=== PATIENT | male | born 1960 | race Asian ===

== ENCOUNTER 2023-05-29 13:32 | Emergency (ER) | payer OTHER, SELFPAY ==
[2023-05-29 13:33] VITALS: BP 149/104; PULSE 67; RESP 18; TEMP 36.4; O2SAT 96; BMI 25.4
--- NOTE | 2023-05-29 14:11 | EX.ED.GENINJ ---
HPI History of Present Illness Chief Complaint: Laceration Narrative Narrative: History and physical mildly limited secondary to language barrier. Patient declined third-libertarian asl interpreter and would like his daughter to translate. He is visiting from [place] and was helping the patient clean and remodel closet. He bent over into the closet, and stood up quickly. His head of the shelf and he sustained a laceration to the top of his scalp. They are unsure of his last tetanus immunization. He denies other injury. No neck pain. No loss of consciousness. He does not take blood thinners. Past medical history includes hypertension. He is visiting from [place] and will be here for a month. They present because the laceration on the top of his head. [facility] Medical History HTN (hypertension) Allergy/AdvReac Type Severity Reaction Status Date / Time No Known Allergies Allergy Verified 05/29/23 13:35 Social History Smoking Status: Unknown if ever smoked ROS ROS ED ROS Narrative Constitutional: No fever, no chills. HEENT: No sore throat. No neck pain. No loss of vision. No rhinorrhea. Laceration to scalp on top of head. Cardiovascular: No chest pain. No palpitations. No pedal edema. Respiratory: No cough, no shortness of breath. Abdominal: No abdominal pain. No nausea. No vomiting. Genitourinary: No dysuria. No hematuria. Musculoskeletal: No myalgias. No arthralgias. Neurologic: Positive scalp pain/headaches. No dizziness. No lightheadedness. No loss of consciousness. Skin: No rash. No change in color. Psychiatric: No depression. No anxiety. EXAM Physical Exam Narrative Exam Narrative: Afebrile. Vital signs noted. HEENT: Normocephalic. 4 cm laceration on top of scalp, no galeal involvement apparent, no active bleeding. PERRL, EOMI. Neck soft and supple. No point tenderness or step off. Cardiovascular: Regular rate and rhythm. No murmurs, rubs, or gallops appreciated. Respiratory: No tachypnea. Lungs clear to auscultation bilaterally. Gastrointestinal: Abdomen soft, nontender, with normoactive bowel sounds. No rebound or guarding. Neurological: Awake. Alert. Oriented to person, place, and time. Nonfocal, nonlateralizing. Able to raise arms above head without difficulty. Skin: No rash. Normal color. No pallor. Musculoskeletal: No pedal edema. Full range of motion extremities. Const Vital Signs: 05/29/23 13:33 Temperature 97.5 F L Temperature Source Temporal Pulse Rate 67 Respiratory Rate 18 Blood Pressure 149/104 H Blood Pressure Mean 119 Pulse Ox 96 Oxygen Delivery Method Room Air MDM MDM MDM Narrative Medical decision making narrative: Why do think that the patient has a closed head injury, I do not feel that CT imaging is indicated. I do not feel that he has a skull fracture or intracranial hemorrhage based on his normal neurological examination. I also do not feel that CT of the neck is indicated as he has full range of motion without pain. His tetanus immunization will be updated. He was informed of the risk of infection and scarring and acknowledges an understanding. Lidocaine will be used to perform staple closure. Procedure note: Lidocaine 1% without epinephrine was used as local anesthetic. Area was cleansed using Shur-Clens and normal saline. The 4.5 cm laceration on the top of the skull/scalp shows no acute galea involvement. Skin edges approximated well with 10 surgical flaquito. Patient tolerated procedure well. At this point in time, I feel he can be discharged to follow-up with urgent care for staple removal, he was told that he can also return to the emergency department, but there would be an ED charge. He will take [id number] medications. He was seen ambulating well to the bathroom in the emergency department. I did discuss utility of CT with the daughter, and she is in agreements that is not currently indicated. Return instructions to the emergency department were reviewed. Disposition is discharged home in stable condition. History & Record Review Discussion w/independent historian: Patient and Family (Daughter) Discharge Plan Triage Chief Complaint: Laceration ED Provider: Rik Rodríguez Dx/Rx/DC Orders Clinical Impression: Closed head injury, Laceration of scalp Instructions: ED Head Injury (Adult), ED Laceration Scalp Stitches or [place] Primary Care Provider: Fiorella Aaron Referrals: Town [facility],Out of [Non-Staff] - Activity Restrictions/Additional Instructions: Take [id number] medications like Tylenol or ibuprofen as needed for pain. Have flaquito removed in 10 to 14 days. You may try urgent care to see if they can remove the flqauito, or return to the emergency department. Disposition Disposition: Home, Self Care
[2023-05-29] MEDS: Diphth,Pertuss(Acell),Tet Vac 0.5 ML Vial IM (14:24)
[2023-05-29] MEDS: Lidocaine 1% (20 ml mdv) 20 ML Vial INFILT (14:24)
[2023-05-29] MEDS: Acetaminophen 325 MG Tablet 650 MG PO (14:24)
[2023-05-29 15:21] VITALS: BP 151/87; PULSE 61; RESP 16; TEMP 36.4; O2SAT 97
== END 2023-05-29 15:22 | disposition home or self-care (01) ==
PROVIDERS: Emergency Provider Emergency Medicine; Visit Provider Emergency Medicine
DX: S01.01XA Laceration without foreign body of scalp, initial encounter (principal); Z23 Encounter for immunization; W22.09XA Striking against other stationary object, initial encounter; Y93.E9 Activity, other interior property and clothing maintenance; I10 Essential (primary) hypertension
CPT/HCPCS: 12002; 90715; 99283

== ENCOUNTER 2023-06-11 09:03 | Emergency (ER) | payer OTHER, SELFPAY ==
[2023-06-11 09:03] VITALS: BP 124/78; PULSE 78; RESP 16; TEMP 36.4; O2SAT 97; BMI 27.1
--- NOTE | 2023-06-11 10:06 | EDS_ITS ---
HPI History of Present Illness Chief Complaint: Wound Check Informant: patient and family Limited: language barrier (Daughter translated) Onset/Context/Timing Onset: Weeks (2) Location: Scalp Worsened by: Nothing Relieved by: Nothing Narrative Narrative: Patient presents for staple removal. Patient had flaquito placed in a scalp laceration 13 days ago. Patient is visiting from [place] and does not have a primary care physician in the area to follow-up with. Patient denies any fevers or chills. Patient denies any discharge or drainage. Patient denies any further bleeding. Patient denies any headaches. Patient denies any nausea or vomiting. Patient denies any pain. [facility] Medical History HTN (hypertension) Home Medications Unobtainable 06/11/23 [History Last Taken Unknown] Allergy/AdvReac Type Severity Reaction Status Date / Time No Known Allergies Allergy Verified 06/11/23 09:30 Social History Smoking Status: Unknown if ever smoked ROS ROS ED Constitutional Constitutional ED: Denies chills or fever(s) Eyes Eyes: Denies blurry vision or change in vision ENT ENT ED: Denies rhinorrhea or sore throat Cardiovascular Cardiovascular: Denies chest pain or palpitations Respiratory/Chest Respiratory/Chest: Denies cough or dyspnea Gastrointestinal Gastrointestinal: Denies nausea or vomiting Genitourinary Genitourinary ED: Denies dysuria or hematuria Musculoskeletal Musculoskeletal: Denies back pain or neck pain Integumentary Denies abscess or rash Neurologic Neurologic: Denies headache(s) or weakness Allergic/Immunologic Allergic/Immunologic ED: Denies mouth swelling or urticaria EXAM Physical Exam Const Vital Signs: 06/11/23 09:03 Temperature 97.6 F L Temperature Source Temporal Pulse Rate 78 Respiratory Rate 16 Blood Pressure 124/78 H Blood Pressure Mean 93 Pulse Ox 97 Oxygen Delivery Method Room Air Positive well nourished and well developed General Appearance ED: well developed and NAD HEENT Reports moist mucous membranes Neck supple and no JVD Neuro CN's II-XII intact bilaterally and no sensory deficits noted Sensorium / Orientation: alert Motor Exam: strength 5/5 throughout Psych mental status grossly normal Skin Skin Narrative: There is a healing scalp laceration over the top of the scalp. There is no bleeding noted. There is no erythema. There is no discharge or drainage is noted. There is no gapping of the wound margins. MDM MDM MDM Narrative Medical decision making narrative: The flaquito were removed without difficulty. Patient tolerated the procedure well. Patient was instructed to follow-up with his primary care physician when he gets back to [place]. Patient and family understood and were agreeable with the plan. All questions were answered. Discharge Plan Triage Chief Complaint: Wound Check ED Provider: Pierre Cantor Dx/Rx/DC Orders Clinical Impression: Encounter for staple removal, Laceration of scalp Instructions: Sutr or Stap Removal, ED Wound Check (No Infection) Prescriptions: No Action Unobtainable Primary Care Provider: Fiorella Aaron Referrals: Fiorella Aaron [Other] - As Needed Disposition Disposition: Home, Self Care
[2023-06-11 10:31] VITALS: BP 137/65; PULSE 72; RESP 16; TEMP 36.8; O2SAT 98
== END 2023-06-11 10:33 | disposition home or self-care (01) ==
PROVIDERS: Emergency Provider Emergency Medicine; Visit Provider Emergency Medicine
DX: S01.01XD Laceration without foreign body of scalp, subsequent encounter (principal); X58.XXXD Exposure to other specified factors, subsequent encounter; I10 Essential (primary) hypertension
CPT/HCPCS: 99282